=== PATIENT | male | born 1965 | race Caucasian/White ===

== ENCOUNTER 2017-01-11 08:43 | Day surgery (SDC) | payer BC ==
[~2017-01-11 08:43] MED LIST: KETOROLAC TROMETHAMINE 0.45% 4 DROP/0.4 ML DROPERETTE OD PRN
[2017-01-11] MEDS ORDERED: LIDOCAINE 1% INJ-PF (10 MG/ML) 30 ML SDV ONE (09:27)
[2017-01-11] MEDS ORDERED: EPINEPHRINE INJ/PF 1 MG/1 ML AMPULE ONE (09:27)
[2017-01-11] MEDS ORDERED: CHONDR SU A NA/HYALUR INTRAOC KIT (SURGICARE) ONE (09:28)
[2017-01-11] MEDS: TROPICAMIDE 1% OPH SOLN 3 ML OD PRN ×3 (09:38→09:59)
[2017-01-11] MEDS: CYCLOPENTOLATE 0.2%/PHENYLEPHRINE 1% OPH SOLN 2 ML OD PRN ×3 (09:38→09:59)
[2017-01-11] MEDS: BESIFLOXACIN HCL 0.6% OPH SUSP 5 ML BOTTLE OD PRN ×4 (09:38→10:29)
[2017-01-11] MEDS: TETRACAINE HCL 0.5% OPH SOLN 0.6 ML DROPERETTE OD PRN ×2 (09:39→09:59)
[2017-01-11] MEDS ORDERED: MIDAZOLAM 2 MG/2 ML INJ ONE (09:47)
[2017-01-11] MEDS ORDERED: FENTANYL CITRATE INJ/PF 100 MCG/2 ML AMPUL ONE (09:47)
[2017-01-11] MEDS: TOBRAMYCIN SULFATE/DEXAMETH OPH OINTMENT 3.5 GM ONE ×2 (10:22→10:29)
== END 2017-01-11 11:17 | disposition home or self-care (01) ==
LOC: SC 08:43
PROVIDERS: ATTEND Ophthalmology
PROC: 08RJ3JZ Replacement of Right Lens with Synthetic Substitute, Percutaneous Approach (ICD-10-PCS; principal; 2017-01-11 10:00)
DX: H25.11 Age-related nuclear cataract, right eye (principal); I48.91 Unspecified atrial fibrillation; Z87.891 Personal history of nicotine dependence; Z88.0 Allergy status to penicillin
CPT/HCPCS: 66984; V2787; J2250; J3490 ×3; J0171; J3010; 142

== ENCOUNTER 2017-01-25 07:03 | Day surgery (SDC) | payer BC ==
[~2017-01-25 07:03] MED LIST changes: -KETOROLAC TROMETHAMINE 0.45% 4 DROP/0.4 ML DROPERETTE OD PRN; +KETOROLAC TROMETHAMINE 0.45% 4 DROP/0.4 ML DROPERETTE OS PRN
[2017-01-25] MEDS ORDERED: MIDAZOLAM 2 MG/2 ML INJ ONE (07:09)
[2017-01-25] MEDS ORDERED: FENTANYL CITRATE INJ/PF 100 MCG/2 ML AMPUL ONE (07:10)
[2017-01-25] MEDS ORDERED: EPINEPHRINE INJ/PF 1 MG/1 ML AMPULE ONE (07:39)
[2017-01-25] MEDS ORDERED: LIDOCAINE 1% INJ-PF (10 MG/ML) 30 ML SDV ONE (07:40)
[2017-01-25] MEDS ORDERED: CHONDR SU A NA/HYALUR INTRAOC KIT (SURGICARE) ONE (07:40)
[2017-01-25] MEDS: TROPICAMIDE 1% OPH SOLN 3 ML OS PRN ×3 (07:42→08:07)
[2017-01-25] MEDS: CYCLOPENTOLATE 0.2%/PHENYLEPHRINE 1% OPH SOLN 2 ML OS PRN ×3 (07:42→08:07)
[2017-01-25] MEDS: BESIFLOXACIN HCL 0.6% OPH SUSP 5 ML BOTTLE OS PRN ×4 (07:43→08:46)
[2017-01-25] MEDS: TETRACAINE HCL 0.5% OPH SOLN 0.6 ML DROPERETTE OS PRN ×2 (07:44→08:07)
[2017-01-25] MEDS: TOBRAMYCIN SULFATE/DEXAMETH OPH OINTMENT 3.5 GM ONE ×2 (08:46)
== END 2017-01-25 09:27 | disposition home or self-care (01) ==
LOC: SC 07:03
PROVIDERS: ATTEND Ophthalmology
PROC: 08RK3JZ Replacement of Left Lens with Synthetic Substitute, Percutaneous Approach (ICD-10-PCS; principal; 2017-01-25 08:15)
DX: H25.12 Age-related nuclear cataract, left eye (principal); Z96.1 Presence of intraocular lens; I48.91 Unspecified atrial fibrillation; J30.2 Other seasonal allergic rhinitis; Z88.0 Allergy status to penicillin; Z87.891 Personal history of nicotine dependence
CPT/HCPCS: 66984; V2787; J2250; J3490 ×3; J0171; J3010; 142